=== PATIENT | female | born 1980 | race Asian ===

== ENCOUNTER 2020-11-28 13:52 | Outpatient (AMBR) | payer OTHER, MEDICAID, SELFPAY ==
--- NOTE | 2020-11-28 14:04 | PT.OIERPT ---
PT OP Initial Eval Patient Information Visit Reasons: left and right shoulder pain Treatment Dx #1: B shoulder pain Start of Care: 11/28/20 Date of Onset: 11 months ago Initial Assessment Subjective Pt is 40 yr old female who c/o B shoulder pain x11 months. 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 The pain doesn't restrict her from activities but when they are painful it's hard to lift the arms fully or lift her dtr. PMH: ovary removal Imaging: X-ray in EMR Pt goal: less shoulder pain Objective B shoulder AROM: FF: 125 deg Abd: 130 deg ER: 85 deg Strength: 3+/5 in all planes PROM: end-range pain with capsular tightness C/S AROM: L rot: 50 deg, R 46 deg Extension: 40 deg with pain Flexion: 33 deg R SB: 14 deg, L SB: 13 deg with pain B ULTT medial n: positive TTP: R upper quadrant [place]: positive Assessment Pt presentation consistent with B shoulder impingement with decreased ROM, strength and OH reach. Impingement testing is positive and she has neck pain referred into the upper trapezius regions with extension and sidebending. Pt requires skilled therapy in order to improve ROM, strength and has fair rehab potential. 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 Ind with HEP 2. Improved AROM of R shoulder to 145 deg FF, 145 deg abduction and 90 deg ER 3. Improved strength to at least 4/5 in all planes 4. Pt will reach OH x10 with <=4/10 pain Treatment Plan 1. Manual therapy 2. Therex 3. Modalities as indicated, moist heat pack, ice, electrical stimulation, Frequency and Duration 2x a week for 6 weeks Certification Dates: 11/28/20 to 02/25/21 Office Procedures PT Procedures PT Date of Service: 11/28/20 OP PT Eval Mod Complex 30 minutes: Yes
== END 2020-12-16 23:59 | disposition home or self-care (01) ==
PROVIDERS: Visit Provider Physician Assistant
DX: M25.511 Pain in right shoulder (principal); M25.512 Pain in left shoulder
CPT/HCPCS: 97162

== ENCOUNTER → 2025-01-26 | Outpatient (CLI) | payer OTHER, MEDICAID, SELFPAY ==
--- NOTE | 2025-01-26 | XR_ITS ---
Examination: Diagnostic digital mammography, unilateral, left Computer aided detection 3-D breast Tomosynthesis, unilateral Date and time of exam: 01/26/2025, 2:43 PM Comparisons: November 2022 through May 2024 Indications: Follow-up evaluation of probably benign retroareolar calcifications Technique: Nonmagnified MLO, CC views of the left breast have been obtained, reconstructed from 3-D Tomosynthesis images. R2 computer aided detection program utilized for evaluation of suspicious masses and/or abnormal calcifications. 3-D Tomosynthesis images obtained. Technologist: Findings: The breasts are heterogeneously dense, which may obscure small masses. Stable benign-appearing retroareolar calcifications. No evidence of suspicious grouping or morphology. No evidence of abnormal masses or suspicious calcifications. Impression: BI-RADS category 2: Benign findings Recommend 1 year follow-up mammogram
== END | disposition home or self-care (01) ==
PROVIDERS: PCP Nurse Practitioner Family; Referring Provider Nurse Practitioner Family; Visit Provider Nurse Practitioner Family
DX: R92.322 Mammographic fibroglandular density, left breast (principal)
CPT/HCPCS: 77061; 77065; G0279

== ENCOUNTER → 2025-05-11 | Outpatient (CLI) | payer OTHER, MEDICAID, SELFPAY ==
--- NOTE | 2025-05-11 15:49 | XR_ITS ---
Examination: PA lateral chest 2 views TECHNIQUE: Upright PA lateral chest 2 views Date and time: May 11, 2025 1559 hours INDICATIONS: Coughing beginning one week ago. FINDINGS: Normal heart size. Lungs are clear. The osseous structures are intact IMPRESSION: No active disease
== END | disposition home or self-care (01) ==
PROVIDERS: PCP Nurse Practitioner Family; Referring Provider Nurse Practitioner Family; Visit Provider Nurse Practitioner Family
DX: R05.9 Cough, unspecified (principal)
CPT/HCPCS: 71046